=== PATIENT | female | born 1975 | race Caucasian/White ===

== ENCOUNTER → 2016-06-26 | Outpatient (CLI) | payer BC ==
[~2016-06-26] MED LIST: AMIT25TA9 PO; ATOR10TA PO; ATOR10TA66 PO; CHOL50003 PO; DOCU100C37 PO; ESTR0.62 PO; HYDR-3812 PO; HYDR-3816 PO; IBUP-1773 PO; KRIL1CAP24 PO; L GA1CAP PO; LEVO1TAB66 PO; MEDR5TAB PO; MULT-1018 PO; NORE1TAB25 PO; PNT40TEC PO; SIME80TA16 PO
[2016-06-26 17:42] LABS: BILIRUBIN,URINE NEGATIVE (NEGATIVE); KETONES,URINE NEGATIVE (NEGATIVE); LEUKOCYTE ESTERASE ,URINE 1+ (NEGATIVE); NITRITE,URINE NEGATIVE (NEGATIVE); PH,URINE 6 (5-9); PROTEIN,URINE NEGATIVE (NEGATIVE); UROBILINOGEN,URINE NORMAL (NORMAL)
== END ==
LOC: LAB 17:26
PROVIDERS: ATTEND Nurse Practitioner Family
DX: R31.9 Hematuria, unspecified (principal)
CPT/HCPCS: 81000; 87088

== ENCOUNTER → 2017-01-17 | Outpatient (CLI) | payer BC ==
--- NOTE | 2017-01-18 09:54 | Diagnostic Imaging Report ---
EXAMINATION: Bilateral screening mammogram 2D views with tomosynthesis. The current study was also evaluated with a Computer Aided Detection (CAD) system. INDICATION: Screening. PERSONAL HISTORY: No current complaints stated on the questionnaire. COMPARISON: None. This is a baseline exam. FINDINGS: The breasts are composed of heterogeneously dense parenchyma which may decrease mammographic sensitivity. No mass, architectural distortion, or suspicious cluster of calcifications. IMPRESSION: No mammographic evidence of malignancy. Annual screening mammograms are recommended. ACR BI-RADS Category 2: Benign findings. Result letter will be mailed to the patient. Note: At least 10% of breast cancer is not imaged by mammography. Dictated by: Dictated on workstation # [id number]
== END ==
LOC: RAD 09:47
PROVIDERS: ATTEND Nurse Practitioner Family
DX: Z12.31 Encounter for screening mammogram for malignant neoplasm of breast (principal)
CPT/HCPCS: 77067

== ENCOUNTER → 2017-10-08 | Outpatient (CLI) | payer BC ==
[~2017-10-08] MED LIST changes: +ACHD5005 PO; +HYDR-34 PO; -HYDR-3812 PO; -HYDR-3816 PO
--- NOTE | 2017-10-08 13:22 | Diagnostic Imaging Report ---
EXAMINATION: Lumbar spine radiographs, three views. COMPARISON: None. HISTORY: 42-year-old female, low back pain. FINDINGS: There are five lumbar type vertebral bodies. 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 There are bilateral L5 pars interarticularis defects. There is no anterolisthesis of L5 relative to S1. The additional alignment of the lumbar spine is unremarkable. There is no identified compression deformity. There are mild disc degenerative changes of the lower thoracic spine. There are mild disc degenerative changes of the lumbar spine with mild disc height loss and a tiny osteophytes at L1-L2, L2-L3, and L3-L4. The facet joints are unremarkable. Unremarkable appearance of the bilateral sacroiliac joints. Right upper quadrant surgical clips likely reflect prior cholecystectomy. IMPRESSION: 1. Bilateral L5 pars interarticularis defects without abnormal alignment of the lumbar spine. 2. Mild disc degenerative changes of the thoracolumbar spine as described above. 3. Unremarkable appearance of the facet joints. 4. Unremarkable appearance of the bilateral sacroiliac joints. Dictated by: Dictated on workstation # [id number]
== END ==
LOC: RAD 12:29
PROVIDERS: ATTEND Family Medicine
DX: M47.816 Spondylosis without myelopathy or radiculopathy, lumbar region (principal); M43.20 Fusion of spine, site unspecified; Z98.890 Other specified postprocedural states
CPT/HCPCS: 72100

== ENCOUNTER → 2020-02-03 | Outpatient (CLI) | payer BC ==
[~2020-02-03] MED LIST changes: +LEVO1TAB39 PO; -LEVO1TAB66 PO
== END ==
LOC: LABNPT 06:02
PROVIDERS: ATTEND Family Medicine
DX: R50.9 Fever, unspecified (principal); R05 Cough; Z20.828 Contact with and (suspected) exposure to other viral communicable diseases
CPT/HCPCS: 87635

== ENCOUNTER → 2020-08-09 | Outpatient (CLI) | payer BC ==
--- NOTE | 2020-08-09 12:51 | Diagnostic Imaging Report ---
INDICATION: Back pain. EXAMINATION: Lumbar spine. FINDINGS: AP and lateral views of the lumbar spine show normal vertebral body height and alignment. There are no acute compression fractures seen. The disc spaces are well-maintained. There is some old anterior wedging of the T11 and T12 vertebra but this is unchanged compared to 10/08/2017. IMPRESSION: No acute abnormality is seen in the lumbar spine. Dictated by: Dictated on workstation # [id number]
--- NOTE | 2020-08-09 13:13 | Diagnostic Imaging Report ---
PROCEDURE: US left lower extremity venous. TECHNIQUE: Multiple real-time grayscale images were obtained over the left lower extremity in various projections. Additional duplex Doppler and color Doppler images were also obtained. INDICATION: Left calf pain The veins of the left leg have good color filling and compressibility. There is phasic flow and normal response to augmentation. IMPRESSION: Negative venous Doppler left leg. Dictated by: Dictated on workstation # [id number]
== END ==
LOC: RAD 12:21
PROVIDERS: ATTEND Nurse Practitioner Family
DX: M79.662 Pain in left lower leg (principal); M54.5 Low back pain
CPT/HCPCS: 72100